=== PATIENT | male | born 1980 | race Caucasian/White ===

== ENCOUNTER 2019-09-22 17:40 | Emergency (ER) | payer MEDICAID ==
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
[2019-09-22 18:17] VITALS: BP 113/78; PULSE 85
== END 2019-09-22 18:05 | disposition home or self-care (01) ==
LOC: MW.ED 17:40
DX: J32.9 Chronic sinusitis, unspecified (principal); H10.32 Unspecified acute conjunctivitis, left eye; Z88.0 Allergy status to penicillin
CPT/HCPCS: 99283